=== PATIENT | female | born 1995 | race Caucasian/White ===

== ENCOUNTER 2018-06-13 04:38 | Emergency (ER) | payer MEDICAID, OTHER ==
[~2018-06-13] VITALS: Ht 157.5 cm; Wt 61.2 kg
[2018-06-13 04:40] VITALS: BP_SYST 153
[2018-06-13 05:06] VITALS: BP_SYST 148
== END 2018-06-13 05:06 ==
LOC: SED 04:38
DX: F98.8 Other specified behavioral and emotional disorders with onset usually occurring in childhood and adolescence (principal); Z02.89 Encounter for other administrative examinations
CPT/HCPCS: 99283